=== PATIENT | female | born 2000 | race Caucasian/White ===

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

== ENCOUNTER 2018-12-11 19:31 | Emergency (ER) | payer OTHER ==
[~2018-12-11] VITALS: Ht 157.5 cm; Wt 63.5 kg
[~2018-12-11 19:31] MED LIST: MACROBID 100 M100 M1 PO; PYRIDIUM200 MG PO
[2018-12-11] MEDS ORDERED: TRI FEMYNOR 281 EACH PO (19:56)
[2018-12-11 21:30] LABS: URINE BILIRUBIN NEGATIVE (Negative); URINE BLOOD 3+ (Negative); URINE CLARITY CLEAR; URINE COLOR YELLOW; URINE GLUCOSE-RANDOM* NEGATIVE (Negative); URINE KETONES NEGATIVE (Negative); URINE LEUKOCYTES-REFLEX NEGATIVE (Negative); URINE NITRITE-REFLEX NEGATIVE (Negative); URINE PROTEIN (DIPSTICK) NEGATIVE (Negative); URINE SPECIFIC GRAVITY <= 1.005 (1.005-1.035); URINE UROBILINOGEN 0.2 E.U./dl (0.2-1.0)
[2018-12-11 21:45] LABS: CASTS None Seen /LPF (None Seen); CRYSTALS None Seen /LPF (None Seen); SQUAMOUS 0-3 Few /LPF (0-3)
[2018-12-11 21:46] LABS: BACTERIA-REFLEX None Seen /HPF (None Seen); URINE RBC 0-2 Rare /HPF (0-2); URINE WBC-REFLEX None Seen /HPF (0-5)
[2018-12-11 23:12] VITALS: BP 126/70
== END 2018-12-11 23:13 | disposition home or self-care (01) ==
LOC: ER 19:31
PROVIDERS: Physician Assistant
DX: B34.9 Viral infection, unspecified (principal); M26.602 Left temporomandibular joint disorder, unspecified; Z88.0 Allergy status to penicillin; Z91.013 Allergy to seafood; Z88.2 Allergy status to sulfonamides